=== PATIENT | female | born 1960 | race Caucasian/White ===

== ENCOUNTER 2019-06-18 18:14 | Emergency (ER) | payer SELFPAY ==
[~2019-06-18] VITALS: Ht 160 cm; Wt 71.2 kg
[2019-06-18 18:17] VITALS: Ht 160 cm; Wt 71.2 kg
[2019-06-18 18:59] LABS: CALCIUM 8.6 mg/dL (8.5-10.1); CARBON DIOXIDE 29.3 mmol/L (21-32); CHLORIDE SERUM 101 mmol/L (98-107); CREATININE SERUM 0.8 mg/dL (0.6-1.0); GFR1 > 60 mL/min; GLUCOSE SERUM 285 mg/dL (74-106); POTASSIUM SERUM 3.8 mmol/L (3.5-5.1); SODIUM SERUM 139 mmol/L (136-145)
[2019-06-18 19:00] LABS: BASOPHIL % 0.3 % (0-2); PLATELET COUNT 280 x10^3mcL (130-400)
[2019-06-18 19:04] LABS: ALBUMIN 3.6 g/dL (3.4-5.0); ALKALINE PHOSPHATASE 202 U/L (46-116); ALT/SGPT 71 U/L (14-59); AST/SGOT 33 U/L (15-37); BILIRUBIN TOTAL 0.4 mg/dL (0.20-1.00); RED CELL DISTRIBUTION WIDTH 14.8 % (11.5-14.5); TOTAL PROTEIN, SERUM 7.7 g/dL (6.4-8.2)
[2019-06-18 20:36] VITALS: BP 162/84
== END 2019-06-18 20:36 | disposition home or self-care (01) ==
LOC: ED 18:14
PROVIDERS: Emergency Medicine
DX: G51.0 Bell's palsy (principal); I10 Essential (primary) hypertension
CPT/HCPCS: 36415; J1885; J7512